=== PATIENT | female | born 1970 ===

== ENCOUNTER 2017-10-01 11:02 | Emergency (ER) | payer OTHER ==
--- NOTE | 2017-10-01 12:12 | ED ---
Headache - HPI Summary HPI Summary: 47 yr old female with prior Lyme disease a couple of years ago, bullseye rash right groin two weeks ago, and now a headache for the past four days in both temporal areas. Fever, chills, fatigue, dark circles under eyes. Son with similar symptoms. She lives in [facility] and also in the [facility]. - History Of Current Complaint Chief Complaint: UCHeadache Stated Complaint: HEADACHE Time Seen by Provider: 10/01/17 11:51 - Allergies/Home Medications Allergies/Adverse Reactions: Allergies Allergy/AdvReac Type Severity Reaction Status Date / Time No Known Allergies Allergy Verified 10/01/17 11:40 Home Medications: Home Medications NK [No Home Medications Reported] 10/01/17 [History Confirmed 10/01/17] PMH/Surg Hx/FS Hx/Imm Hx - Surgical History Surgery Procedure, Year, and Place: x 2 Infectious Disease History: No Infectious Disease History: Denies: Traveled Outside the [place] in Last 30 Days - Family History Known Family History: Positive: Other - lyme disease - Social History Occupation: Works From/At Home Lives: With Family Alcohol Use: Occasionally Substance Use Type: Reports: None Smoking Status (MU): Never Smoked Tobacco Review of Systems Positive: Fever, Chills, Fatigue Negative: Photophobia Positive: Rash Positive: Headache All Other Systems Reviewed And Are Negative: Yes Physical Exam Triage Information Reviewed: Yes Vital Signs On Initial Exam: Initial Vitals Temp Pulse Resp BP Pulse Ox 99.2 F 66 14 132/88 100 10/01/17 11:40 10/01/17 11:40 10/01/17 11:40 10/01/17 11:40 10/01/17 11:40 Vital Signs Reviewed: Yes Appearance: Positive: Well-Appearing, No Pain Distress Skin: Positive: Warm, Skin Color Reflects Adequate Perfusion Head/Face: Positive: Normal Head/Face Inspection Eyes: Positive: EOMI, QUITA, Other: - no photophobia ENT: Positive: Pharynx normal, TMs normal Neck: Positive: Nontender Respiratory/Lung Sounds: Positive: Clear to Auscultation, Breath Sounds Present Cardiovascular: Positive: RRR. Negative: Murmur Abdomen Description: Positive: Nontender Musculoskeletal: Positive: Strength/ROM Intact Neurological: Positive: Sensory/Motor Intact, Alert, Oriented to Person Place, Time, CN Intact II-III, Normal Gait, Speech Normal Psychiatric: Positive: Normal - [place] Coma Scale Best Eye Response: 4 - Spontaneous Best Motor Response: 6 - Obeys Commands Best Verbal Response: 5 - Oriented Coma Scale Total: 15 Diagnostics - Vital Signs Vital Signs Temp Pulse Resp BP Pulse Ox 10/01/17 11:40 99.2 F 66 14 132/88 100 - Laboratory Lab Statement: Any lab studies that have been ordered have been reviewed, and results considered in the medical decision making process. Headache Course/Dx - Course Course Of Treatment: 47 yr old female with headache and fatigue, rash a couple weeks ago. Recommend to the ER for further work up. - Diagnoses Provider Diagnoses: Headache Discharge - Sign-Out/Discharge Documenting (check all that apply): Patient Departure - Discharge Plan Condition: Good Disposition: HOME-RECOMMEND TO ED Patient Education Materials: Lyme Disease (ED), Acute Headache (ED) Referrals: No Primary Care Phys,NOPCP [Primary Care Provider] - [facility] [Outside] Additional Instructions: You should go to the ER for further work up upon leaving this urgent care. - Billing Disposition and Condition Condition: GOOD Disposition: Home-Recommend to ED
== END 2017-10-01 12:21 | disposition home health service (06) ==
LOC: UCCORT 11:02
DX: R51 Headache (principal)
CPT/HCPCS: 99202; G0463